=== PATIENT | male | born 1950 | race Caucasian/White ===

== ENCOUNTER 2017-10-28 17:47 | Inpatient (IN) | payer MEDICARE, OTHER, SELFPAY ==
[~2017-10-28 17:47] MED LIST: ISOVUE-370 76%-LOCM 1 ML ONE; PHENYLEPHRINE-NS 100 MCG/ML 10 ML SYRINGE ONE
[2017-10-28] MEDS ORDERED: Fentanyl 100 MCG/2 ML VIAL ONE ×4 (17:51→22:08)
[2017-10-28] MEDS ORDERED: Midazolam HCl 2 mg/2 ml Vial ONE (17:51)
[2017-10-28 18:02] LABS: Actual Bicarbonate (HCO3a) 22.1 mEq/L (22-26); Base Excess (BEa) -4.8 mEq/L (0 (+/-) 2.5); Hematocrit-ABG 46.8 % (42.0-52.0); Hemoglobin (Hb) 14.5 g/dL (14.0-18.0); O2 Tension (PaO2) 111.8 mmHg (80.0-100.0); pH, Arterial 7.28 (7.35-7.45)
[2017-10-28 18:02] LABS: #Basophils 0.1 thou/uL (0.0-0.2); #Eosinphils 0.1 thou/uL (0.0-0.7); #Lymphocytes 1.8 thou/uL (1.20-3.40); #Monocytes 0.6 thou/uL (0.11-0.59); #Neutrophils 5.2 thou/uL (1.40-6.50); %Basophils 0.9 % (0.0-1.0); %Eosinophils 1.3 % (0.0-10.0); %Lymphocytes 22.5 % (21.0-51.0); %Monocytes 8.1 % (0.0-10.0); %Neutrophils 67.3 % (42.0-75.0); Hemoglobin 15.5 g/dL (14.0-18.0); Mean Corpuscular HGB CONC 33.8 g/dL (32.0-36.0); Mean Corpuscular Hemoglobin 33.2 pg (27.0-31.0); Mean Corpuscular Volume 98.1 fl (80.0-94.0); Platelet Count 240 thou/uL (130-400); RBC Distribution Width 12.6 % (11.5-14.5); Red Blood Cell (RBC) Count 4.68 mill/uL (4.70-6.10); White Blood Cell (WBC) Count 7.8 thou/uL (4.8-10.8)
[2017-10-28 18:03] LABS: Analyzer IN Cardio ER; Calcium, Ionized 1.2 mmol/L (1.12-1.30); Puncture Site RRA
[2017-10-28 18:11] LABS: Bilirubin Negative (Negative); Blood, Urine Trace (Negative); Clarity CLEAR (Clear); Glucose, Urine (Dipstick) Negative (Negative); Leukocyte Negative (Negative); Nitrite Negative (Negative); Protein, Urine (Dipstick) Negative (Neg-Trace); Specific Gravity, Urine 1.005 (1.002-1.036); Urobilinogen 0.2 mg/dL (0.2-1.0)
[2017-10-28 18:11] LABS: PTT 26.7 SEC (22.9-36.1); Prothrombin Time 13.6 SEC (12.0-14.7)
[2017-10-28 18:14] LABS: Pathc Cast-AUWi Flag 0.14 (0-2.49)
[2017-10-28 18:15] LABS: ALT (SGPT) 50 U/L (8-55); AST (SGOT) 77 U/L (5-34); Albumin 3.8 g/dL (3.4-4.8); Alkaline Phosphatase 59 U/L (40-150); Anion Gap 12 mmol/L (10-20); BUN (Urea Nitrogen) 12 mg/dL (8.4-25.7); Bilirubin, Total 0.4 mg/dL (0.2-1.2); Calc. Creatinine Clearance 0 mL/min (70-130); Calcium 8.4 mg/dL (7.8-10.44); Carbon Dioxide 22 mmol/L (23-31); Chloride 107 mmol/L (98-107); Estimated GFR-MDRD 90; Glucose 96 mg/dL (80-115); Potassium 4.1 mmol/L (3.5-5.1); Protein, Total 6.8 g/dL (5.8-8.1); Sodium 137 mmol/L (136-145)
[2017-10-28 18:23] LABS: Bacteria/HPF None Seen HPF (None Seen); Hyaline Casts/LPF NONE SEEN LPF (0-3 Hyaline); RBC/HPF 0-3 HPF (0-3); Renal Epithelial 0-3 HPF (0-3); Squamous Epithelial None Seen HPF (0-3); Transitional Epithelial 0-3 HPF (0-3); WBC/HPF None Seen HPF (0-3)
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
[2017-10-28] MEDS ORDERED: fentaNYL Citrate/PF 2,000 MCG in Sodium Chloride 0.9% 60 ML IV SCH (19:00)
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
[2017-10-28 19:22] LABS: Acetaminophen Less than 6.0 mcg/mL (10.0-30.0); Alcohol 98 mg/dL (Less than 10); Salicylate Less than 8.0 mg/dL (15.0-30.0)
[2017-10-28 19:25] LABS: Amphetamine Not Detected (NotDetected); Barbiturates Screen Not Detected (NotDetected); Benzodiazepine Screen Not Detected (NotDetected); Cocaine Metabolite Screen Not Detected (NotDetected); Medtox Control Line Valid? VALID (VALID); Medtox Reader # READER 4; Methadone Not Detected (NotDetected); Methamphetamine Not Detected (NotDetected); Opiate Screen Not Detected (NotDetected); Oxycodone Screen Not Detected (NotDetected); Phencyclidine (PCP) Not Detected (NotDetected); THC/Cannabinoid Screen Not Detected (NotDetected); Tricyclic Screen Not Detected (NotDetected)
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
[2017-10-28] MEDS ORDERED: Neomycin-Polymyxin 1 ML AMP ONE (20:44)
--- NOTE | 2017-10-28 21:56 | RAD ---
THREE VIEWS LEFT ANKLE: 10/28/17 HISTORY: Open reduction internal fixation. Open reduction and internal fixation demonstrates plates and screws across the distal left tibial and fibular fractures. The medial malleolar fracture has been stabilized using two medial screws. There is a transosseous screw across the distal left fibula and tibia. IMPRESSION: Open reduction and internal fixation left tibial and fibular fractures. POS: [facility]
--- NOTE | 2017-10-28 22:25 | RAD ---
TWO INTRAOPERATIVE RADIOGRAPHS LEFT FOOT 10/28/17 AP and lateral views left foot is obtained on the distal aspect. Image demonstrate placement of a pin across the distal third metatarsal as well as through the proximal phalanx through both the metatars al and proximal phalangeal fractures. IMPRESSION: Open reduction internal fixation third digit fractures. POS: [facility]
[2017-10-28] MEDS ORDERED: Fentanyl BOLUS 250 ML IVPB PRN (22:42)
[2017-10-28] MEDS ORDERED: DISCONTINUE PREVIOUS NARCOTIC PAIN MEDICATIONS AND BENZODIAZEPINES FS SCH (22:42)
[2017-10-28] MEDS ORDERED: Propofol BOLUS 1,000 MG/100 ML VIAL IV PRN (22:42)
[2017-10-28] MEDS ORDERED: hydrALAZINE 20 MG/ML VIAL SLOW IVP PRN (22:55)
[2017-10-28] MEDS ORDERED: Dextrose 5% in Water 1,000 ML IV PRN (22:55)
[2017-10-28] MEDS ORDERED: Dextrose 50% Abboject 50 ML SYRINGE SLOW IVP PRN (22:55)
[2017-10-28] MEDS ORDERED: Ondansetron HCl/PF 4 MG/2 ML Vial IVP PRN (22:55)
[2017-10-28] MEDS ORDERED: Ondansetron ODT 4 MG TAB PO PRN (22:55)
[2017-10-28] MEDS ORDERED: Ventilator Sedation Protocol 1 EACH FS SCH (22:55)
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
[2017-10-28] MEDS: Propofol 1,000 MG/100 ML VIAL IV PRN (22:57)
[2017-10-28] MEDS: fentaNYL Citrate/PF 2,000 MCG in Sodium Chloride 0.9% 60 ML IV SCH (22:57)
[2017-10-28] MEDS: Sodium Chloride 0.9% 1,000 ML IV SCH (23:00)
[2017-10-28 23:20] LABS: ALV-art Gradient 243.275 (0-20); Base Excess (BEa) -4.6 mEq/L (0 (+/-) 2.5); CO2 Tension 40.9 mmHg (35.0-45.0); Calcium, Ionized 1.1 mmol/L (1.12-1.30); Hematocrit-ABG 47.4 % (42.0-52.0); O2 Tension (PaO2) 62.1 mmHg (80.0-100.0); Puncture Site RRAD; pH, Arterial 7.33 (7.35-7.45)
[2017-10-28 23:25] LABS: Hemoglobin 15.1 g/dL (14.0-18.0)
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
[2017-10-29 05:08] LABS: #Lymphocytes 0.7 thou/uL (1.20-3.40); #Monocytes 0.6 thou/uL (0.11-0.59); %Basophils 0.3 % (0.0-1.0); %Eosinophils 0.2 % (0.0-10.0); %Lymphocytes 8.4 % (21.0-51.0); %Monocytes 7.2 % (0.0-10.0); Hemoglobin 13.9 g/dL (14.0-18.0); Mean Corpuscular HGB CONC 32.9 g/dL (32.0-36.0); Mean Corpuscular Hemoglobin 31.7 pg (27.0-31.0); Mean Corpuscular Volume 96.6 fl (80.0-94.0); Mean Platelet Volume 7.4 fL (7.4-10.4); Platelet Count 186 thou/uL (130-400); RBC Distribution Width 13.1 % (11.5-14.5); Red Blood Cell (RBC) Count 4.36 mill/uL (4.70-6.10); White Blood Cell (WBC) Count 8.3 thou/uL (4.8-10.8)
[2017-10-29 05:16] LABS: Anion Gap 9 mmol/L (10-20); BUN (Urea Nitrogen) 12 mg/dL (8.4-25.7); Calc. Creatinine Clearance 127 mL/min (70-130); Calcium 7.6 mg/dL (7.8-10.44); Carbon Dioxide 25 mmol/L (23-31); Chloride 108 mmol/L (98-107); Estimated GFR-MDRD Greater than 90; Glucose 118 mg/dL (80-115); Potassium 4.2 mmol/L (3.5-5.1); Sodium 138 mmol/L (136-145)
[2017-10-29 08:22] LABS: Actual Bicarbonate (HCO3a) 23.3 mEq/L (22-26); Base Excess (BEa) 2.6 mEq/L (0 (+/-) 2.5); CO2 Tension 44.4 mmHg (35.0-45.0); Hematocrit-ABG 43.5 % (42.0-52.0); O2 Tension (PaO2) 61.6 mmHg (80.0-100.0); pH, Arterial 7.34 (7.35-7.45)
[2017-10-29 08:23] LABS: Hemoglobin (Hb) 14.1 g/dL (14.0-18.0)
[2017-10-29 08:24] LABS: Analyzer IN Cardio OR; Puncture Site LR
[2017-10-29] MEDS: Sodium Chloride 0.9% 1,000 ML IV SCH ×2 (08:24→16:22)
[2017-10-29] MEDS: Pantoprazole 40 MG VIAL IVP SCH (08:25)
--- NOTE | 2017-10-29 10:38 | RAD ---
PORTABLE CHEST: Date: 10/29/17 HISTORY: Respiratory distress. COMPARISON: Prior day's exam. FINDINGS: Heart size is borderline in size. Bilateral chest tubes are in place. The left-sided pneumothorax conner ears to have largely resolved. Endotracheal tube and NG tubes appear to be in satisfactory position. Right clavicle fracture is seen. IMPRESSION: Suggestion of almost complete resolution of left-sided pneumothorax. Otherwise stable exam. POS: [facility]
[2017-10-29 11:10] LABS: Hemoglobin 13.1 g/dL (14.0-18.0)
--- NOTE | 2017-10-29 11:54 | CT ---
PRELIMINARY REPORT/[facility]/EMERGENTY AFTER-HOURS PROCEDURE Addendum created by Walter Solis MD on 10/29/2017 4:31 AM Central Time ([place] & [place]) THIS REPORT C ONTAINS FINDINGS THAT MAY BE CRITICAL TO PATIENT CARE. The findings were verbally communicated via te lephone conference with Dr Berman at 4:31 AM CDT on 10/29/2017. The findings were acknowledged and und erstood. Initial Report created on 10/29/2017 4:17 AM Central Time ([place] & [place]) CT Head Without Intravenous Contrast CLINICAL HISTORY: 67 years old, male; Condition or disease; Other: Ich; Patient HX: F/i ich TECHNIQUE: Axial computed tomography images of the head/brain without intravenous contrast. COMPARISON: CT Brain WO Con 2017-10-28 18:34 FINDINGS: Diffuse cerebral volume loss. Chronic small vessel disease. Unchanged small left paramedian frontal lobe subarachnoid hemorrhage. Small new subarachnoid hemorrhage in the left posterior parietal region saline images 20-23. Increased extra-axial hypodensity in the left cerebral convexity with linear hyperdensities in the fr ontal region seen in image 20 measuring approximately 4 mm in greatest thickness. Unchanged 2 mm focus of hyperdensity adjacent to left frontal horn. No hydrocephalus, mass, mass effect or midline shift. No effacement of the ventricles and basal cisterns. Bolton-white matter differentiation is preserved. Atherosclerosis of the intracranial vasculature. No dense MCA sign. Orbits are unremarkable. Increasing opacification of the sphenoid sinus with air fluid levels. Mastoid air cells are clear. No acute fracture. Mild right temporal scalp soft tissue swelling. IMPRESSION: 1. New small subarachnoid hemorrhage in the left posterior parietal region and unchanged small subara chnoid hemorrhage in the left paramedian frontal lobe. 2. Increased extra-axial hypodensity in the left cerebral convexity, 4 mm in thickness with linear hy perdensities in the frontal region suggestive of additional mixed density subdural hemorrhage. 3. Unchanged 2 mm focus of hyperdensity adjacent to left frontal horn. 4. Increasing opacification of the sphenoid sinus with air fluid levels. Thank you for allowing us to participate in the care of your patient. Dictated and Authenticated by: Walter Solis MD 10/29/2017 4:17 AM Central Time ([place] & [place]) FINAL REPORT CT OF BRAIN PERFORMED WITHOUT CONTRAST ENHANCEMENT: Date: 10/29/17 HISTORY: Follow-up of intracranial hemorrhage related to a head injury. FINDINGS: There is some mild generalized ventricular and sulcal prominence. A small amount of blood adjacent to the falx in the left frontal region and a tiny amount of subarachnoid blood tracking along a sulcus in this region is felt to be stable. There has been a development of some new subarachnoid blood whic h is some minimal linear change in the left posterior frontoparietal region. Tiny focus of blood raúl cent to the tip of the left frontal horn is also stable. Slight asymmetry to the left subdural space as compared to the right, mainly low attenuation. This is slightly more prominent than it was on the previous examination, but does not have the appearance of any definite significance and does not appe ar acute. It may indicate presence of some mild cerebral edema on the right rather than a tiny chroni c left subdural. IMPRESSION: Fairly stable examination. There is some subarachnoid blood over the left frontal convexity in a para falcine location which is fairly similar to the prior examination. Some new subarachnoid blood is see n in the left posterior frontoparietal convexity and there is slight asymmetry with some low attenuat ion prominence to the extra-axial space on the left as compared to the right of uncertain significanc e. This report is in agreement with the preliminary report issued by [facility]. POS: [facility]
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
[2017-10-29 17:07] LABS: Hemoglobin 12.5 g/dL (14.0-18.0)
[2017-10-29] MEDS: Morphine 4 MG/ML VIAL SLOW IVP PRN (17:33)
[2017-10-29] MEDS: fentaNYL Citrate/PF 2,000 MCG in Sodium Chloride 0.9% 60 ML IV SCH (17:34)
--- NOTE | 2017-10-29 18:53 | CT ---
CT BRAIN NONCONTRAST: History: Intracranial hemorrhage. Comparison: Earlier in the day, 10-29-17. FINDINGS: Noncontrast enhanced CT images of the brain were obtained. There is a tiny area of medial aspect left frontal parietal subarachnoid and subdural blood to be unc hanged. This small amount of left parietotemporal subarachnoid blood has not increased and may be sli ghtly less pronounced than on the previous exam. A tiny left anterior frontal subependymal deep white matter area of hyperdensity is again seen, unchanged since the previous exam. The left subdural area of asymmetric CSF density is unchanged since the previous exam. No evidence of increasing hemorrhage is seen. Overall there may be slight decreasing amounts of subarachnoid hemorr mikael. No newly developed intracranial areas of hemorrhage or abnormalities seen. Nasogastric and endotracheal tubes again seen. IMPRESSION: See above. No newly developed areas of hemorrhage or increasing areas of shift or intraparenchymal ab normalities seen. POS: [facility]
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
[2017-10-29] MEDS ORDERED: CEFAZOLIN 1 GM VIAL SLOW IVP SCH (22:00)
[2017-10-29] MEDS: CEFAZOLIN 1 GM in Sodium Chloride 0.9% 100 ML IVPB SCH (22:10)
[2017-10-29] MEDS ORDERED: Sodium Chloride 0.9% 500 ML IV SCH (22:30)
[2017-10-30] MEDS: Sodium Chloride 0.9% 1,000 ML IV SCH ×4 (02:19→19:51)
[2017-10-30 04:42] LABS: #Lymphocytes 0.7 thou/uL (1.20-3.40); #Monocytes 0.6 thou/uL (0.11-0.59); #Neutrophils 5.7 thou/uL (1.40-6.50); %Basophils 0.4 % (0.0-1.0); %Eosinophils 0.7 % (0.0-10.0); %Lymphocytes 10.2 % (21.0-51.0); %Monocytes 8.5 % (0.0-10.0); %Neutrophils 80.2 % (42.0-75.0); Hemoglobin 11.6 g/dL (14.0-18.0); Mean Corpuscular HGB CONC 33.9 g/dL (32.0-36.0); Mean Corpuscular Hemoglobin 33.5 pg (27.0-31.0); Mean Platelet Volume 7.6 fL (7.4-10.4); Platelet Count 156 thou/uL (130-400); RBC Distribution Width 13.1 % (11.5-14.5); Red Blood Cell (RBC) Count 3.45 mill/uL (4.70-6.10); White Blood Cell (WBC) Count 7.2 thou/uL (4.8-10.8)
[2017-10-30 04:58] LABS: Anion Gap 8 mmol/L (10-20); BUN (Urea Nitrogen) 16 mg/dL (8.4-25.7); Calc. Creatinine Clearance 137 mL/min (70-130); Calcium 7.4 mg/dL (7.8-10.44); Carbon Dioxide 25 mmol/L (23-31); Chloride 109 mmol/L (98-107); Estimated GFR-MDRD Greater than 90; Glucose 119 mg/dL (80-115); Magnesium 1.6 mg/dL (1.6-2.6); Sodium 138 mmol/L (136-145)
[2017-10-30] MEDS: CEFAZOLIN 1 GM in Sodium Chloride 0.9% 100 ML IVPB SCH ×3 (06:19→21:04)
[2017-10-30 07:04] LABS: Actual Bicarbonate (HCO3a) 22.7 mEq/L (22-26); Base Excess (BEa) -2.3 mEq/L (0 (+/-) 2.5); CO2 Tension 40.2 mmHg (35.0-45.0); Calcium, Ionized 1.2 mmol/L (1.12-1.30); Hematocrit-ABG 34.5 % (42.0-52.0); Hemoglobin (Hb) 11.3 g/dL (14.0-18.0); O2 Tension (PaO2) 104.7 mmHg (80.0-100.0); Puncture Site RRA; pH, Arterial 7.37 (7.35-7.45)
[2017-10-30] MEDS: fentaNYL Citrate/PF 2,000 MCG in Sodium Chloride 0.9% 60 ML IV SCH ×2 (08:12→23:19)
[2017-10-30] MEDS: Pantoprazole 40 MG VIAL IVP SCH (08:14)
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
[2017-10-30] MEDS ORDERED: Magnesium 2 GM/NS 0.9% 100 ML 2 GM in Premix Bag 1 BAG IVPB SCH (09:00)
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
--- NOTE | 2017-10-30 09:10 | RAD ---
CHEST ONE VIEW: History: Chest tube placement. Comparison: 10-29-17 FINDINGS: Re-demonstration of endotracheal and nasogastric tubes. Left and right sided chest tubes are also dem onstrated. Stable configuration of the cardiac silhouette. Persistent opacification of the lung paren chyma. Pneumothoraxes are not appreciated. Multiple right sided rib fractures. IMPRESSION: No significant change. POS: [facility]
[2017-10-30] MEDS ORDERED: Acetaminophen 500 MG TAB PO PRN (12:54)
[2017-10-30] MEDS ORDERED: Lidocaine 1% (PF) 30 ML VIAL ONE (13:54)
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
[2017-10-30] MEDS: Morphine 4 MG/ML VIAL SLOW IVP PRN (23:19)
[2017-10-31] MEDS: Sodium Chloride 0.9% 1,000 ML IV SCH ×4 (04:12→22:49)
[2017-10-31 04:54] LABS: Anion Gap 8 mmol/L (10-20); BUN (Urea Nitrogen) 10 mg/dL (8.4-25.7); Calc. Creatinine Clearance 155 mL/min (70-130); Calcium 7.6 mg/dL (7.8-10.44); Carbon Dioxide 26 mmol/L (23-31); Chloride 110 mmol/L (98-107); Estimated GFR-MDRD Greater than 90; Glucose 93 mg/dL (80-115); Potassium 4.2 mmol/L (3.5-5.1); Sodium 140 mmol/L (136-145)
[2017-10-31] MEDS: CEFAZOLIN 1 GM in Sodium Chloride 0.9% 100 ML IVPB SCH (05:32)
[2017-10-31] MEDS: Morphine 4 MG/ML VIAL SLOW IVP PRN (06:29)
[2017-10-31 07:50] LABS: #Eosinphils 0.1 thou/uL (0.0-0.7); #Lymphocytes 0.5 thou/uL (1.20-3.40); #Monocytes 0.4 thou/uL (0.11-0.59); #Neutrophils 7.1 thou/uL (1.40-6.50); %Basophils 0.1 % (0.0-1.0); %Lymphocytes 5.6 % (21.0-51.0); %Monocytes 4.7 % (0.0-10.0); %Neutrophils 88.6 % (42.0-75.0); Hemoglobin 10.7 g/dL (14.0-18.0); Mean Corpuscular HGB CONC 32.2 g/dL (32.0-36.0); Mean Corpuscular Hemoglobin 32.4 pg (27.0-31.0); Mean Platelet Volume 7.8 fL (7.4-10.4); Platelet Count 148 thou/uL (130-400); RBC Distribution Width 12.9 % (11.5-14.5); Red Blood Cell (RBC) Count 3.32 mill/uL (4.70-6.10)
[2017-10-31 08:07] LABS: Magnesium 1.9 mg/dL (1.6-2.6)
[2017-10-31 08:09] LABS: Phosphorus 1.9 mg/dL (2.3-4.7)
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
[2017-10-31] MEDS ORDERED: Potassium Phosphate 15 MMOL in Sodium Chloride 0.9% 250 ML 250 ML IVPB SCH (08:30)
--- NOTE | 2017-10-31 09:03 | RAD ---
CHEST 1 VIEW: Date: 10/31/17 HISTORY: Chest tube. COMPARISON: Radiograph from prior day. FINDINGS: Left-sided thoracostomy tube is similar with side port within the thoracic cavity. Moderate volume le ft subcutaneous emphysema along the chest wall. Right thoracostomy tube is in place, also with side p ort within the thoracostomy cavity. Small effusions. Air space opacities are present in both lungs. N o large pneumothorax. Endotracheal tube tip at level of clavicles. Enteric tube is seen proximally, although the tip is not well delineated. IMPRESSION: Poor delineation of the enteric tube tip. Abdomen radiograph recommended. POS: [facility]
[2017-10-31] MEDS: Piperacillin/Tazobactam 3.375 GM in Sodium Chloride 0.9% 100 ML IVPB SCH ×3 (09:09→20:29)
[2017-10-31] MEDS: Pantoprazole 40 MG VIAL IVP SCH (09:10)
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
[2017-10-31] MEDS: Lorazepam 2 MG/ML VIAL SLOW IVP PRN ×2 (11:45→22:57)
[2017-10-31] MEDS: fentaNYL Citrate/PF 2,000 MCG in Sodium Chloride 0.9% 60 ML IV SCH (18:28)
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
[2017-11-01] MEDS: Piperacillin/Tazobactam 3.375 GM in Sodium Chloride 0.9% 100 ML IVPB SCH ×4 (01:17→20:10)
[2017-11-01 06:09] LABS: #Eosinphils 0.1 thou/uL (0.0-0.7); #Lymphocytes 0.5 thou/uL (1.20-3.40); #Monocytes 0.4 thou/uL (0.11-0.59); #Neutrophils 5.4 thou/uL (1.40-6.50); %Basophils 0.3 % (0.0-1.0); %Eosinophils 2.1 % (0.0-10.0); %Lymphocytes 7.7 % (21.0-51.0); %Monocytes 6.8 % (0.0-10.0); %Neutrophils 83.1 % (42.0-75.0); Hemoglobin 10.4 g/dL (14.0-18.0); Mean Corpuscular HGB CONC 34.3 g/dL (32.0-36.0); Mean Corpuscular Hemoglobin 34.2 pg (27.0-31.0); Mean Corpuscular Volume 99.9 fl (80.0-94.0); Mean Platelet Volume 7.3 fL (7.4-10.4); Platelet Count 165 thou/uL (130-400); RBC Distribution Width 12.4 % (11.5-14.5); Red Blood Cell (RBC) Count 3.04 mill/uL (4.70-6.10); White Blood Cell (WBC) Count 6.5 thou/uL (4.8-10.8)
[2017-11-01 06:21] LABS: Anion Gap 9 mmol/L (10-20); BUN (Urea Nitrogen) 11 mg/dL (8.4-25.7); Calc. Creatinine Clearance 158 mL/min (70-130); Calcium 7.8 mg/dL (7.8-10.44); Carbon Dioxide 26 mmol/L (23-31); Chloride 108 mmol/L (98-107); Estimated GFR-MDRD Greater than 90; Glucose 95 mg/dL (80-115); Potassium 4.2 mmol/L (3.5-5.1); Sodium 139 mmol/L (136-145)
[2017-11-01 07:10] LABS: Puncture Site RR
[2017-11-01 07:11] LABS: ALV-art Gradient 151.025 (0-20); Actual Bicarbonate (HCO3a) 25.4 mEq/L (22-26); Base Excess (BEa) -0.6 mEq/L (0 (+/-) 2.5); CO2 Tension 47.9 mmHg (35.0-45.0); Hemoglobin (Hb) 10.3 g/dL (14.0-18.0); O2 Tension (PaO2) 72.3 mmHg (80.0-100.0); pH, Arterial 7.34 (7.35-7.45)
[2017-11-01 07:12] LABS: Calcium, Ionized 1.2 mmol/L (1.12-1.30)
--- NOTE | 2017-11-01 07:46 | PDOC.PULCC ---
CCU Progress Note: Subj/Obj - Subjective Date: 11/01/17 Time: 07:42 Narrative: Sedated and on vent - Objective Allergies/Adverse Reactions: Allergies Allergy/AdvReac Type Severity Reaction Status Date / Time No Known Drug Allergies Allergy Unverified 10/28/17 18:54 Vital Signs and I&O: Vital Signs Temp 99.3 F 11/01/17 07:19 Pulse 96 11/01/17 07:19 Resp 14 11/01/17 07:19 BP 108/74 11/01/17 02:45 Pulse Ox 99 11/01/17 07:19 Intake & Output 10/31/17 11/01/17 11/01/17 18:59 06:59 18:59 Intake Total 2154.1 1486.3 Output Total 1850 1400 100 Balance 304.1 86.3 -100 Weight 222 lb 14.197 oz Intake: Intake, IV Amount 2154.1 1486.3 Cefazolin 1 gm In Sodium 100 Chloride 0.9% 100 ml @ 200 mls/hr IVPB Q8HR [facility] Rx#:[id number] Potassium Phosphate 15 250 mmol In Sodium Chloride 0 .9% 250 ML 250 ml @ 62.5 mls/hr IVPB NOW [facility] Rx#: [id number] Sodium Chloride 0.9% 1, 1767 1405 000 ml @ 150 mls/hr IV . Q6H40M [facility] Rx#:[id number] fentaNYL Citrate/PF 2,000 37.1 81.3 mcg In Sodium Chloride 0 .9% 60 ml @ As Directed IV INF [facility] Rx#:[id number] Output: Chest Tube Drainage 300 250 30 Left Upper Lateral Chest 60 60 10 Right Upper Lateral Chest 240 190 20 Gastric Drainage 0 50 Output, Warren 1550 1100 70 Other: Voiding Method Indwelling Catheter Indwelling Catheter Indwelling Catheter Spontaneous Breathing Test: not done (Pt going to OR) Lines (incl Aterial, CVC, PICC+Insertion date): Has a left subclavian cordis CCU Progress Note: Exam - Physical Exam Constitutional: NAD HEENT: PERRLA, sclera anicteric Neck: no nodes, no JVD Cardiovascular: RRR, no rub Focused Respiratory Location: decreased breath sounds: Right, Left Deviation from normal: did not see a leak on either chest tube today Gastrointestinal: soft, non-tender Musculoskeletal: edema present Neurological: non-focal Skin: no rash CCU Progress Note: Data - Labs Result Diagrams: 11/01/17 05:10 11/01/17 05:10 - ABG Interpretation ABG Results: ABG pH 7.34 (7.35-7.45) L 11/01/17 06:56 ABG pCO2 47.9 mmHg (35.0-45.0) H 11/01/17 06:56 ABG O2 Sat Calc/Amos 95.2 % (94.0-100.0) 11/01/17 06:56 ABG Base Excess -0.6 mEq/L (0 (+/-) 2.5) 11/01/17 06:56 Interpretation: respiratory acidosis - Radiology Interpretation Chest x-ray Status: image reviewed by me Additional comments: Large right pulmonary contusion CCU Progress Note: A/P - Time Spent with Patient Time (minutes): 35 (cc time) - Plan Plan: A: Acute respiratory failure - hypoxic, requiring vent. Probably not quite ready to wean yet. Going to OR today for repair of clavicular fracture Right pulmonary contusion - same Left PTX - seems resolved SAH Right hand weakness Multiple R rib fx with flail chest P: Not weanable yet. Will adjust vent settings To OR for clavicle repair Continue IV ABX PICC line
[2017-11-01] MEDS: Sodium Chloride 0.9% 1,000 ML IV SCH ×3 (07:50→20:10)
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
[2017-11-01] MEDS: Pantoprazole 40 MG VIAL IVP SCH (08:39)
[2017-11-01] MEDS ORDERED: Vecuronium 10 MG VIAL ONE ×2 (10:10→11:54)
[2017-11-01] MEDS ORDERED: Midazolam HCl 5 mg/5 ml Vial ONE (11:55)
[2017-11-01] MEDS: fentaNYL Citrate/PF 2,000 MCG in Sodium Chloride 0.9% 60 ML IV SCH (12:32)
[2017-11-01] MEDS: CEFAZOLIN/Water 2 GM/20 ML SYRINGE SLOW IVP SCH ×2 (13:09→21:13)
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
[2017-11-01] MEDS: Lorazepam 2 MG/ML VIAL SLOW IVP PRN (14:05)
--- NOTE | 2017-11-01 15:14 | RAD ---
TWO INTRAOPERATIVE FLUOROSCOPIC IMAGES RIGHT CLAVICLE: Date: 11-01-17 History: ORIF right clavicle. Comparison: 10-30-14 FINDINGS: There is a plate and multiple screws transfixing the previously noted comminuted and displaced, as we ll as angulated right clavicle fracture. There is improvement in alignment of the fracture fragments. Right sided thoracostomy tube is noted in place and multiple right sided rib fractures are visualize d. Also, a fracture involving the inferior body of the right scapula is partially imaged. IMPRESSION: 1. Internal fixation comminuted right clavicle fracture with improvement in alignment of fracture fra gments. 2. Multiple right sided rib fractures with right sided thoracostomy tube. 3. Fracture right scapula. POS: [facility]
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
[2017-11-02] MEDS: Lorazepam 2 MG/ML VIAL SLOW IVP PRN ×2 (00:15→11:07)
[2017-11-02] MEDS: Piperacillin/Tazobactam 3.375 GM in Sodium Chloride 0.9% 100 ML IVPB SCH ×4 (01:07→22:29)
[2017-11-02] MEDS: fentaNYL Citrate/PF 2,000 MCG in Sodium Chloride 0.9% 60 ML IV SCH ×2 (02:31→23:57)
[2017-11-02] MEDS: Sodium Chloride 0.9% 1,000 ML IV SCH ×3 (04:28→22:28)
[2017-11-02 05:46] LABS: #Eosinphils 0.2 thou/uL (0.0-0.7); #Lymphocytes 0.5 thou/uL (1.20-3.40); #Monocytes 0.5 thou/uL (0.11-0.59); #Neutrophils 4.9 thou/uL (1.40-6.50); %Basophils 0.2 % (0.0-1.0); %Eosinophils 2.6 % (0.0-10.0); %Lymphocytes 8.2 % (21.0-51.0); %Monocytes 8.1 % (0.0-10.0); %Neutrophils 80.8 % (42.0-75.0); Hemoglobin 9.5 g/dL (14.0-18.0); Mean Corpuscular HGB CONC 32.6 g/dL (32.0-36.0); Mean Corpuscular Hemoglobin 32.4 pg (27.0-31.0); Mean Corpuscular Volume 99.4 fl (80.0-94.0); Mean Platelet Volume 6.8 fL (7.4-10.4); Platelet Count 175 thou/uL (130-400); RBC Distribution Width 12.3 % (11.5-14.5); Red Blood Cell (RBC) Count 2.93 mill/uL (4.70-6.10); White Blood Cell (WBC) Count 6.1 thou/uL (4.8-10.8)
[2017-11-02 06:04] LABS: Anion Gap 9 mmol/L (10-20); BUN (Urea Nitrogen) 12 mg/dL (8.4-25.7); Calc. Creatinine Clearance 164 mL/min (70-130); Calcium 7.7 mg/dL (7.8-10.44); Carbon Dioxide 27 mmol/L (23-31); Chloride 108 mmol/L (98-107); Estimated GFR-MDRD Greater than 90; Glucose 91 mg/dL (80-115); Potassium 3.9 mmol/L (3.5-5.1); Sodium 140 mmol/L (136-145)
[2017-11-02 07:24] LABS: Actual Bicarbonate (HCO3a) 24.9 mEq/L (22-26); Base Excess (BEa) -0.5 mEq/L (0 (+/-) 2.5); CO2 Tension 44.5 mmHg (35.0-45.0); Calcium, Ionized 1.1 mmol/L (1.12-1.30); Hematocrit-ABG 29.4 % (42.0-52.0); Hemoglobin (Hb) 9.5 g/dL (14.0-18.0); O2 Tension (PaO2) 82.7 mmHg (80.0-100.0); Puncture Site RR; pH, Arterial 7.37 (7.35-7.45)
[2017-11-02 07:25] LABS: ALV-art Gradient 144.875 (0-20)
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
[2017-11-02] MEDS: Pantoprazole 40 MG VIAL IVP SCH (09:30)
--- NOTE | 2017-11-02 09:45 | RAD ---
1 VIEW CHEST: Date: 11/02/17 HISTORY: Chest tube placement. COMPARISON: 11/01/17. FINDINGS: Interval placement of an internal fixation plate along the right clavicle. Redemonstration of an endo tracheal and nasogastric tube. Nasogastric tube is not completely assessed. There is a left-sided PIC C line which has also been placed since the previous examination with the distal tip in the right atr ium. Left and right chest tubes are identified. No obvious pneumothorax. Interstitial and alveolar op acities are noted. Stable cardiac silhouette. Multiple right rib fractures are noted. IMPRESSION: 1. Interval placement of an internal fixation plate along the right clavicle. Interval placement of a left-sided PICC line. 2. Bilateral chest tubes, without evidence of pneumothorax. POS: [facility]
[2017-11-02] MEDS: Polyethylene Glycol 3350 17 GM Packet PER TUBE SCH (10:06)
[2017-11-02] MEDS: Senokot S 8.6-50 MG TAB PO SCH ×2 (10:06→22:30)
--- NOTE | 2017-11-02 13:31 | CT ---
HEAD CT WITHOUT CONTRAST: Date: 11-02-17 Comparison: 10-29-17 History: Decreased mental status, re-evaluate intracranial hemorrhage. Technique: Serial axial CT imaging is obtained at 5 mm intervals from vertex through skull base witho ut contrast. FINDINGS: The imaged paranasal sinuses and mastoid air cells demonstrate mild mucosal thickening of the posteri or ethmoid air cells bilaterally as well as bilateral sphenoid sinuses, left greater than right. Ther e is an obliquely oriented fracture involving the temporal bone on the right extending into the regio n of the mastoid air cells with opacification of the tympanic cavity and the majority of the mastoid air cells on the right. There is small volume subarachnoid blood in the posterior left frontoparietal region, which appears s imilar to slightly decreased when compared to the prior examination. There is also small volume subdu ral hemorrhage on image 24 just to the left of the falx measuring 3 mm, unchanged. No new intracrania l hemorrhage. No midline shift or mass effect. IMPRESSION: 1. Small volume intracranial hemorrhage as detailed above. No new hemorrhage, midline shift, or mass effect. 2. Nondisplaced stable right temporal bone fracture with associated opacification of the mastoid air cells and tympanic cavity. Fabian RICH Spoke with Vipul Coles at approximately 1145 a.m. 11-02-17. POS: [facility]
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
[2017-11-03] MEDS: Piperacillin/Tazobactam 3.375 GM in Sodium Chloride 0.9% 100 ML IVPB SCH ×4 (03:37→20:20)
[2017-11-03] MEDS: Sodium Chloride 0.9% 1,000 ML IV SCH ×3 (03:39→10:00)
[2017-11-03 04:47] LABS: #Eosinphils 0.2 thou/uL (0.0-0.7); #Lymphocytes 0.6 thou/uL (1.20-3.40); #Monocytes 0.5 thou/uL (0.11-0.59); #Neutrophils 4.5 thou/uL (1.40-6.50); %Basophils 0.3 % (0.0-1.0); %Eosinophils 3.6 % (0.0-10.0); %Lymphocytes 9.6 % (21.0-51.0); %Monocytes 8.2 % (0.0-10.0); %Neutrophils 78.3 % (42.0-75.0); Hemoglobin 9.8 g/dL (14.0-18.0); Mean Corpuscular HGB CONC 33.1 g/dL (32.0-36.0); Mean Corpuscular Hemoglobin 32.7 pg (27.0-31.0); Mean Corpuscular Volume 98.8 fl (80.0-94.0); Mean Platelet Volume 7.4 fL (7.4-10.4); Platelet Count 194 thou/uL (130-400); RBC Distribution Width 12.3 % (11.5-14.5); Red Blood Cell (RBC) Count 2.98 mill/uL (4.70-6.10); White Blood Cell (WBC) Count 5.8 thou/uL (4.8-10.8)
[2017-11-03 04:58] LABS: Anion Gap 7 mmol/L (10-20); BUN (Urea Nitrogen) 12 mg/dL (8.4-25.7); Calc. Creatinine Clearance 184 mL/min (70-130); Carbon Dioxide 28 mmol/L (23-31); Chloride 106 mmol/L (98-107); Estimated GFR-MDRD Greater than 90; Glucose 115 mg/dL (80-115); Potassium 3.5 mmol/L (3.5-5.1); Sodium 137 mmol/L (136-145)
[2017-11-03 07:27] LABS: Actual Bicarbonate (HCO3a) 27.4 mEq/L (22-26); Base Excess (BEa) 2.4 mEq/L (0 (+/-) 2.5); CO2 Tension 44.3 mmHg (35.0-45.0); Hematocrit-ABG 26.5 % (42.0-52.0); Hemoglobin (Hb) 8.6 g/dL (14.0-18.0); O2 Tension (PaO2) 72.5 mmHg (80.0-100.0); pH, Arterial 7.41 (7.35-7.45)
[2017-11-03 07:28] LABS: Calcium, Ionized 1.1 mmol/L (1.12-1.30); Puncture Site RRA
[2017-11-03 07:29] LABS: ALV-art Gradient 86.025 (0-20)
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
[2017-11-03] MEDS ORDERED: Bisacodyl 10 MG SUPP PR PRN (08:18)
[2017-11-03] MEDS ORDERED: Pancrelipase DR 12000 1 CAP FS PRN (08:21)
[2017-11-03] MEDS ORDERED: Sodium Bicarbonate Tab 325 MG TAB PER TUBE PRN (08:21)
--- NOTE | 2017-11-03 08:37 | RAD ---
CHEST ONE VIEW: History: Chest tube. Comparison: 11-02-17 FINDINGS: Portable semi upright chest re-demonstrates the endotracheal tube, nasogastric tube, left and right s ided chest tubes. Stable post-surgical change involving the right clavicle. Stable opacification of t he lung parenchyma. Focal pneumonia or atelectasis in the right lower lobe is noted. There is no pneu mothorax. Multiple right rib fractures are again demonstrated. IMPRESSION: 1. Worsening of opacification of the right lower lobe. 2. Stable left-sided PICC line. POS: [facility]
[2017-11-03] MEDS: Polyethylene Glycol 3350 17 GM Packet PER TUBE SCH (09:38)
[2017-11-03] MEDS: Senokot S 8.6-50 MG TAB PO SCH ×2 (09:39→20:20)
[2017-11-03] MEDS: Pantoprazole 40 MG VIAL IVP SCH (09:39)
--- NOTE | 2017-11-03 14:56 | PRG ---
DATE OF SERVICE: 11/03/2017 SUBJECTIVE: Mr. Ward is doing well today. He is on the ventilator. Dr. Arambula has been unable to wean him. He has bilateral chest tubes, there is no air leak. The patient is awake and responsive appropriately to questions and commands. White count 5, hemoglobin 9.8. Basic metabolic profile nor mal. Renal function normal. Urine output excellent 3555 in last 24 hours. The patient's IV fluids have been decreased to TKO rate. He is tolerating his tube feedings. We will allow him to diurese. OBJECTIVE: LUNGS: Clear to auscultation. Lung sounds better with less rhonchi. CARDIAC: Regular rate and rhythm. ABDOMEN: Soft, nontender. EXTREMITIES: Unremarkable. ASSESSMENT AND PLAN: 1. Respiratory failure, multiple rib fractures, flail chest. Continue ventilatory weaning efforts. Hopefully, he will not need a tracheostomy. 2. Neuropraxia, right arm. 3. Right clavicular fracture. 4. Status post open reduction and internal fixation, left ankle. Continue tube feedings. He has a PICC line. Hopefully, he will not need a tracheostomy.
[2017-11-03] MEDS: fentaNYL Citrate/PF 2,000 MCG in Sodium Chloride 0.9% 60 ML IV SCH (18:33)
[2017-11-04] MEDS: Piperacillin/Tazobactam 3.375 GM in Sodium Chloride 0.9% 100 ML IVPB SCH ×4 (02:34→20:02)
[2017-11-04 05:07] LABS: #Eosinphils 0.2 thou/uL (0.0-0.7); #Lymphocytes 0.4 thou/uL (1.20-3.40); #Monocytes 0.5 thou/uL (0.11-0.59); #Neutrophils 5.7 thou/uL (1.40-6.50); %Basophils 0.3 % (0.0-1.0); %Eosinophils 2.8 % (0.0-10.0); %Lymphocytes 6.5 % (21.0-51.0); %Monocytes 6.7 % (0.0-10.0); %Neutrophils 83.8 % (42.0-75.0); Mean Corpuscular HGB CONC 34.4 g/dL (32.0-36.0); Mean Corpuscular Hemoglobin 33.8 pg (27.0-31.0); Mean Corpuscular Volume 98.5 fl (80.0-94.0); Mean Platelet Volume 7.3 fL (7.4-10.4); Platelet Count 224 thou/uL (130-400); RBC Distribution Width 12.2 % (11.5-14.5); Red Blood Cell (RBC) Count 2.97 mill/uL (4.70-6.10); White Blood Cell (WBC) Count 6.8 thou/uL (4.8-10.8)
[2017-11-04 05:42] LABS: Anion Gap 6 mmol/L (10-20); BUN (Urea Nitrogen) 16 mg/dL (8.4-25.7); Calc. Creatinine Clearance 172 mL/min (70-130); Calcium 8.2 mg/dL (7.8-10.44); Carbon Dioxide 32 mmol/L (23-31); Chloride 105 mmol/L (98-107); Estimated GFR-MDRD Greater than 90; Glucose 138 mg/dL (80-115); Potassium 3.4 mmol/L (3.5-5.1); Sodium 140 mmol/L (136-145)
[2017-11-04 06:38] LABS: Actual Bicarbonate (HCO3a) 30.3 mEq/L (22-26); Base Excess (BEa) 4.4 mEq/L (0 (+/-) 2.5); CO2 Tension 51.9 mmHg (35.0-45.0); Calcium, Ionized 1.1 mmol/L (1.12-1.30); Hematocrit-ABG 31.7 % (42.0-52.0); Hemoglobin (Hb) 10.2 g/dL (14.0-18.0); O2 Tension (PaO2) 68.3 mmHg (80.0-100.0); Puncture Site RR; pH, Arterial 7.38 (7.35-7.45)
[2017-11-04 06:39] LABS: ALV-art Gradient 79.225 (0-20)
[2017-11-04] MEDS: Pantoprazole 40 MG VIAL IVP SCH (09:39)
[2017-11-04] MEDS: Senokot S 8.6-50 MG TAB PO SCH ×2 (09:40→20:02)
[2017-11-04] MEDS: Polyethylene Glycol 3350 17 GM Packet PER TUBE SCH (09:40)
[2017-11-04] MEDS: Sodium Chloride 0.9% 1,000 ML IV SCH (09:41)
--- NOTE | 2017-11-04 10:20 | RAD ---
ONE VIEW CHEST: COMPARISON: 11/02/17, 11/03/17. FINDINGS: Stable lines and tubes. Stable aeration of the lung. Patchy opacities do remain. IMPRESSION: No significant change. POS: [facility]
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
[2017-11-04] MEDS: fentaNYL Citrate/PF 2,000 MCG in Sodium Chloride 0.9% 60 ML IV SCH (13:16)
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
[2017-11-05] MEDS: Piperacillin/Tazobactam 3.375 GM in Sodium Chloride 0.9% 100 ML IVPB SCH ×4 (01:03→20:39)
[2017-11-05] MEDS: fentaNYL Citrate/PF 2,000 MCG in Sodium Chloride 0.9% 60 ML IV SCH ×2 (04:12→21:21)
[2017-11-05 06:05] LABS: #Eosinphils 0.2 thou/uL (0.0-0.7); #Lymphocytes 0.8 thou/uL (1.20-3.40); #Monocytes 0.7 thou/uL (0.11-0.59); #Neutrophils 5.2 thou/uL (1.40-6.50); %Basophils 0.2 % (0.0-1.0); %Eosinophils 3.4 % (0.0-10.0); %Monocytes 10.3 % (0.0-10.0); %Neutrophils 75.1 % (42.0-75.0); Hemoglobin 10.3 g/dL (14.0-18.0); Mean Corpuscular HGB CONC 33.1 g/dL (32.0-36.0); Mean Corpuscular Hemoglobin 32.2 pg (27.0-31.0); Mean Corpuscular Volume 97.2 fl (80.0-94.0); Platelet Count 280 thou/uL (130-400); RBC Distribution Width 12.4 % (11.5-14.5); Red Blood Cell (RBC) Count 3.22 mill/uL (4.70-6.10)
[2017-11-05 06:15] LABS: Anion Gap 8 mmol/L (10-20); BUN (Urea Nitrogen) 17 mg/dL (8.4-25.7); Calc. Creatinine Clearance 0 mL/min (70-130); Calcium 8.5 mg/dL (7.8-10.44); Carbon Dioxide 28 mmol/L (23-31); Chloride 106 mmol/L (98-107); Estimated GFR-MDRD Greater than 90; Glucose 125 mg/dL (80-115); Magnesium 1.8 mg/dL (1.6-2.6); Phosphorus 2.6 mg/dL (2.3-4.7); Potassium 3.4 mmol/L (3.5-5.1); Sodium 139 mmol/L (136-145)
[2017-11-05] MEDS: Senokot S 8.6-50 MG TAB PO SCH ×2 (08:38→20:39)
[2017-11-05] MEDS: Pantoprazole 40 MG VIAL IVP SCH (08:38)
[2017-11-05] MEDS: Polyethylene Glycol 3350 17 GM Packet PER TUBE SCH (08:39)
[2017-11-05] MEDS: Sodium Chloride 0.9% 1,000 ML IV SCH (08:40)
--- NOTE | 2017-11-05 09:25 | RAD ---
CHEST 1 VIEW: HISTORY: Chest tube. COMPARISON: 11/07/15. FINDINGS: Redemonstration of endotracheal tube, nasogastric tube, left-sided PICC line, and bilateral chest tub es. There has been improved aeration of the left lung. Residual patchy interstitial opacities in th e left and right lung do remain. More focal infiltrate in the right lower lobe is noted. Right rib fractures are identified. IMPRESSION: Improved aeration. POS: [facility]
[2017-11-05] MEDS: Propofol 1,000 MG/100 ML VIAL IV PRN ×2 (09:42→18:15)
[2017-11-05] MEDS ORDERED: Magnesium Sulfate 2 GM in Sodium Chloride 0.9% 100 ML IVPB SCH (10:45)
[2017-11-05] MEDS ORDERED: Magnesium 2 GM/NS 0.9% 100 ML 2 GM in Premix Bag 1 BAG IVPB SCH (10:45)
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
[2017-11-06] MEDS: Piperacillin/Tazobactam 3.375 GM in Sodium Chloride 0.9% 100 ML IVPB SCH ×4 (02:40→20:50)
[2017-11-06] MEDS: Propofol 1,000 MG/100 ML VIAL IV PRN ×4 (02:40→20:50)
[2017-11-06 05:02] LABS: Anion Gap 8 mmol/L (10-20); BUN (Urea Nitrogen) 17 mg/dL (8.4-25.7); Calc. Creatinine Clearance 0 mL/min (70-130); Calcium 8.4 mg/dL (7.8-10.44); Carbon Dioxide 27 mmol/L (23-31); Chloride 109 mmol/L (98-107); Estimated GFR-MDRD Greater than 90; Glucose 130 mg/dL (80-115); Potassium 3.7 mmol/L (3.5-5.1); Sodium 140 mmol/L (136-145)
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
[2017-11-06] MEDS: Senokot S 8.6-50 MG TAB PO SCH ×2 (09:40→20:50)
[2017-11-06] MEDS: Polyethylene Glycol 3350 17 GM Packet PER TUBE SCH (09:41)
[2017-11-06] MEDS: Pantoprazole 40 MG VIAL IVP SCH (09:41)
[2017-11-06] MEDS: Sodium Chloride 0.9% 1,000 ML IV SCH (09:43)
--- NOTE | 2017-11-06 10:05 | RAD ---
ONE VIEW CHEST: History: Chest tube. Comparison: 11-05-17 FINDINGS: Redemonstration of endotracheal tube, nasogastric tube, left sided PICC line and bilateral chest tube s. Stable post-traumatic changes and parenchymal opacification. No pneumothorax. IMPRESSION: No significant change. POS: [facility]
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
--- NOTE | 2017-11-06 17:12 | EKG ---
Test Reason : ROUTINE Blood Pressure : / mmHG Vent. Rate : 090 BPM Atrial Rate : 090 BPM P-R Int : 126 ms QRS Dur : 072 ms QT Int : 356 ms P-R-T Axes : 065 043 035 degrees QTc Int : 435 ms Normal sinus rhythm Low voltage QRS Borderline ECG When compared with ECG of 28-OCT-2017 19:08, Nonspecific T wave abnormality now evident in Inferior leads Confirmed by KYREE DYE, . SJuan Pablo ([id number]) on 11/06/2017 5:11:58 PM Referred By: SHAHEED Confirmed By:DR. Ulises ADORNO MD
[2017-11-06] MEDS: fentaNYL Citrate/PF 2,000 MCG in Sodium Chloride 0.9% 60 ML IV SCH (20:49)
[2017-11-07] MEDS: Propofol 1,000 MG/100 ML VIAL IV PRN ×3 (02:40→22:11)
[2017-11-07] MEDS: Piperacillin/Tazobactam 3.375 GM in Sodium Chloride 0.9% 100 ML IVPB SCH (02:40)
[2017-11-07 05:22] LABS: Anion Gap 10 mmol/L (10-20); BUN (Urea Nitrogen) 16 mg/dL (8.4-25.7); Calc. Creatinine Clearance 0 mL/min (70-130); Calcium 8.9 mg/dL (7.8-10.44); Carbon Dioxide 26 mmol/L (23-31); Chloride 108 mmol/L (98-107); Estimated GFR-MDRD Greater than 90; Glucose 122 mg/dL (80-115); Potassium 4.1 mmol/L (3.5-5.1); Sodium 140 mmol/L (136-145)
[2017-11-07] MEDS ORDERED: Rib Fracture Protocol IV SCH (08:15)
[2017-11-07] MEDS: Polyethylene Glycol 3350 17 GM Packet PER TUBE SCH (08:20)
[2017-11-07] MEDS: Pantoprazole 40 MG VIAL IVP SCH (08:20)
[2017-11-07] MEDS: Senokot S 8.6-50 MG TAB PO SCH ×2 (08:20→21:02)
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
--- NOTE | 2017-11-07 08:41 | RAD ---
PORTABLE CHEST: Date: 11/07/17 INDICATION: Assess chest tube. CCU follow-up. COMPARISON: 11/06/17. FINDINGS: Right-sided chest tube is unchanged. Parenchymal opacity in the right lower lung may represent areas of atelectasis or infiltrate. I cannot exclude a small peripheral right pneumothorax. Multiple right- sided displaced rib fractures again noted. Plate and screws transfixing the right clavicle with skin serafin over the right clavicle again noted. ET tube and NG tube are unchanged. Left lung remains carrol ar. Central line is unchanged. IMPRESSION: No evidence of significant change from yesterday. POS: [facility]
[2017-11-07] MEDS: Acetaminophen 650 MG/20.3 ML UDCUP PER TUBE SCH ×2 (11:02→18:02)
[2017-11-07] MEDS: Sodium Chloride 0.9% 1,000 ML IV SCH (11:07)
[2017-11-07] MEDS: Ketorolac Tromethamine 30 MG/ML VIAL IVP SCH ×2 (11:08→18:02)
[2017-11-07] MEDS: Dexamethasone 4 mg/ml Vial SLOW IVP SCH ×2 (11:09→18:04)
--- NOTE | 2017-11-07 14:14 | EKG ---
Test Reason : Blood Pressure : / mmHG Vent. Rate : 095 BPM Atrial Rate : 095 BPM P-R Int : 148 ms QRS Dur : 070 ms QT Int : 366 ms P-R-T Axes : 061 058 056 degrees QTc Int : 459 ms Normal sinus rhythm with sinus arrhythmia Low voltage QRS Borderline ECG Reconfirmed by ARCHANA RIBERA ([id number]), market editor RAMSES DAILEY ([id number]) on 11/07/2017 2:13:45 PM Referred By: Confirmed By:ARCHANA RIBERA
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
[2017-11-08] MEDS: Acetaminophen 650 MG/20.3 ML UDCUP PER TUBE SCH ×2 (00:32→05:44)
[2017-11-08] MEDS: Ketorolac Tromethamine 30 MG/ML VIAL IVP SCH ×2 (00:33→05:44)
[2017-11-08] MEDS: Dexamethasone 4 mg/ml Vial SLOW IVP SCH (00:33)
[2017-11-08] MEDS ORDERED: fentaNYL Citrate/PF 2,000 MCG in Sodium Chloride 0.9% 60 ML IV SCH (04:30)
[2017-11-08 04:36] LABS: #Basophils 0.1 thou/uL (0.0-0.2); #Lymphocytes 0.3 thou/uL (1.20-3.40); #Monocytes 0.1 thou/uL (0.11-0.59); #Neutrophils 6.2 thou/uL (1.40-6.50); %Basophils 1.6 % (0.0-1.0); %Eosinophils 0.2 % (0.0-10.0); %Monocytes 1.9 % (0.0-10.0); %Neutrophils 92.3 % (42.0-75.0); Hemoglobin 11.4 g/dL (14.0-18.0); Mean Corpuscular HGB CONC 33.8 g/dL (32.0-36.0); Mean Corpuscular Hemoglobin 32.7 pg (27.0-31.0); Mean Corpuscular Volume 96.5 fl (80.0-94.0); Mean Platelet Volume 7.3 fL (7.4-10.4); Platelet Count 451 thou/uL (130-400); RBC Distribution Width 12.7 % (11.5-14.5); Red Blood Cell (RBC) Count 3.49 mill/uL (4.70-6.10); White Blood Cell (WBC) Count 6.7 thou/uL (4.8-10.8)
[2017-11-08 04:45] LABS: Anion Gap 12 mmol/L (10-20); BUN (Urea Nitrogen) 26 mg/dL (8.4-25.7); Calc. Creatinine Clearance 0 mL/min (70-130); Calcium 9.2 mg/dL (7.8-10.44); Carbon Dioxide 25 mmol/L (23-31); Chloride 106 mmol/L (98-107); Estimated GFR-MDRD Greater than 90; Glucose 168 mg/dL (80-115); Magnesium 2.4 mg/dL (1.6-2.6); Phosphorus 3.9 mg/dL (2.3-4.7); Potassium 4.5 mmol/L (3.5-5.1); Sodium 138 mmol/L (136-145)
[2017-11-08] MEDS: Senokot S 8.6-50 MG TAB PO SCH ×2 (09:06→20:27)
[2017-11-08] MEDS: Polyethylene Glycol 3350 17 GM Packet PER TUBE SCH (09:06)
[2017-11-08] MEDS: Pantoprazole 40 MG VIAL IVP SCH (09:06)
[2017-11-08] MEDS: Sodium Chloride 0.9% 1,000 ML IV SCH ×2 (09:08→18:35)
[2017-11-08] MEDS ORDERED: Morphine 4 MG/ML VIAL SLOW IVP PRN (09:30)
[2017-11-08] MEDS ORDERED: Gabapentin 300 MG CAP PO SCH ×2 (09:30→10:00)
[2017-11-08] MEDS ORDERED: Rib Fracture Protocol PO SCH (09:45)
[2017-11-08] MEDS ORDERED: Cyclobenzaprine 10 MG TAB PO PRN (09:45)
--- NOTE | 2017-11-08 09:57 | RAD ---
CHEST 1 VIEW: HISTORY: Chest tube removal. COMPARISON: Chest radiograph prior day. FINDINGS: Right thoracostomy tube has been removed. No significant apical pneumothorax is appreciated. Volume loss in the right lung with significant atelectasis. Multiple displaced right-sided rib fractures. Endotracheal tube tip is above the vicky. Enteric tube tip in gastric body. Lungs are somewhat hypoinflated. Multiple stable node of the right clavicle. IMPRESSION: Interval removal of thoracostomy tube without significant pneumothorax. POS: [facility]
[2017-11-08] MEDS: Acetaminophen 500 MG TAB PO SCH ×2 (11:40→18:30)
--- NOTE | 2017-11-08 11:58 | RAD ---
ABDOMEN ONE VIEW: HISTORY: Dobhoff feeding tube placement. COMPARISON: None. FINDINGS: One view abdomen demonstrates a Dobhoff feeding tube in the gastric cardia. An incidental IVC filter is noted. IMPRESSION: Dobhoff feeding tube, as above. POS: [facility]
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
[2017-11-08] MEDS: traMADol HCl 50 MG TAB PO SCH ×2 (13:15→19:07)
[2017-11-08] MEDS: Ibuprofen 800 MG TAB PO SCH ×2 (14:30→20:27)
[2017-11-08] MEDS: Gabapentin 300 MG CAP PO SCH ×2 (15:00→20:27)
[2017-11-08] MEDS: Acetaminophen 1,000 MG in Premix Bag 1 BAG IVPB SCH (19:07)
[2017-11-08] MEDS: Enoxaparin Sodium 40 MG/0.4 ML SYRINGE SC SCH (20:44)
[2017-11-08] MEDS ORDERED: Gabapentin 100 MG CAP PO SCH (21:00)
[2017-11-09] MEDS: traMADol HCl 50 MG TAB PO SCH ×4 (00:37→18:10)
[2017-11-09] MEDS: Acetaminophen 500 MG TAB PO SCH ×4 (00:37→18:10)
[2017-11-09] MEDS: Ketorolac Tromethamine 30 MG/ML VIAL IVP SCH ×2 (00:50→06:10)
[2017-11-09] MEDS: Acetaminophen 1,000 MG in Premix Bag 1 BAG IVPB SCH ×2 (00:50→06:10)
[2017-11-09 05:08] LABS: Anion Gap 7 mmol/L (10-20); BUN (Urea Nitrogen) 29 mg/dL (8.4-25.7); Calc. Creatinine Clearance 0 mL/min (70-130); Calcium 8.5 mg/dL (7.8-10.44); Carbon Dioxide 25 mmol/L (23-31); Chloride 113 mmol/L (98-107); Estimated GFR-MDRD Greater than 90; Glucose 92 mg/dL (80-115); Potassium 3.4 mmol/L (3.5-5.1); Sodium 142 mmol/L (136-145)
[2017-11-09] MEDS: Ibuprofen 800 MG TAB PO SCH ×3 (06:04→21:07)
[2017-11-09] MEDS: Sodium Chloride 0.9% 1,000 ML IV SCH (06:14)
[2017-11-09] MEDS: Senokot S 8.6-50 MG TAB PO SCH ×2 (08:50→21:07)
[2017-11-09] MEDS: Gabapentin 300 MG CAP PO SCH ×3 (08:50→21:07)
[2017-11-09] MEDS: Polyethylene Glycol 3350 17 GM Packet PER TUBE SCH (08:51)
[2017-11-09] MEDS ORDERED: Potassium Chloride 40 MEQ in Sodium Chloride 0.9% 250 ML 250 ML IVPB SCH (09:15)
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
[2017-11-09] MEDS: Nicotine 14 MG PATCH TD SCH (20:59)
[2017-11-09] MEDS: Enoxaparin Sodium 40 MG/0.4 ML SYRINGE SC SCH (21:06)
[2017-11-10] MEDS: traMADol HCl 50 MG TAB PO SCH ×5 (00:11→23:49)
[2017-11-10] MEDS: Acetaminophen 500 MG TAB PO SCH ×5 (00:11→23:49)
[2017-11-10] MEDS: Ibuprofen 800 MG TAB PO SCH ×3 (06:40→21:00)
[2017-11-10] MEDS: Gabapentin 300 MG CAP PO SCH ×3 (09:16→20:58)
[2017-11-10] MEDS: Senokot S 8.6-50 MG TAB PO SCH ×2 (09:16→20:58)
[2017-11-10] MEDS: Polyethylene Glycol 3350 17 GM Packet PER TUBE SCH (09:16)
[2017-11-10] MEDS ORDERED: Tamsulosin HCl 0.4 MG CAP PO SCH (11:30)
[2017-11-10 13:43] VITALS: BMI 32.1
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
[2017-11-10] MEDS ORDERED: Metoprolol Tartrate 5 MG/5 ML VIAL ONE (15:48)
[2017-11-10] MEDS: Enoxaparin Sodium 40 MG/0.4 ML SYRINGE SC SCH (20:58)
[2017-11-10] MEDS: Nicotine 14 MG PATCH TD SCH (20:58)
[2017-11-11 04:36] LABS: Anion Gap 13 mmol/L (10-20); BUN (Urea Nitrogen) 22 mg/dL (8.4-25.7); Calc. Creatinine Clearance 154 mL/min (70-130); Calcium 9.1 mg/dL (7.8-10.44); Carbon Dioxide 20 mmol/L (23-31); Chloride 108 mmol/L (98-107); Estimated GFR-MDRD Greater than 90; Glucose 91 mg/dL (80-115); Magnesium 2.2 mg/dL (1.6-2.6); Phosphorus 3.3 mg/dL (2.3-4.7); Potassium 3.9 mmol/L (3.5-5.1); Sodium 137 mmol/L (136-145)
[2017-11-11] MEDS: traMADol HCl 50 MG TAB PO SCH ×3 (06:27→18:20)
[2017-11-11] MEDS: Acetaminophen 500 MG TAB PO SCH ×3 (06:27→18:20)
[2017-11-11] MEDS: Ibuprofen 800 MG TAB PO SCH ×3 (06:27→21:44)
[2017-11-11] MEDS: Tamsulosin HCl 0.4 MG CAP PO SCH (08:50)
[2017-11-11] MEDS: Senokot S 8.6-50 MG TAB PO SCH ×2 (08:50→20:50)
[2017-11-11] MEDS: Gabapentin 300 MG CAP PO SCH ×3 (08:50→21:43)
[2017-11-11] MEDS: Polyethylene Glycol 3350 17 GM Packet PER TUBE SCH (08:50)
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
[2017-11-11] MEDS: Enoxaparin Sodium 40 MG/0.4 ML SYRINGE SC SCH (21:44)
[2017-11-11] MEDS: Nicotine 14 MG PATCH TD SCH (21:44)
[2017-11-12] MEDS: Acetaminophen 500 MG TAB PO SCH ×4 (00:42→18:26)
[2017-11-12] MEDS: traMADol HCl 50 MG TAB PO SCH ×4 (00:42→18:26)
[2017-11-12] MEDS: Ibuprofen 800 MG TAB PO SCH ×3 (06:30→21:21)
[2017-11-12] MEDS: Gabapentin 300 MG CAP PO SCH ×3 (09:41→19:36)
[2017-11-12] MEDS: Tamsulosin HCl 0.4 MG CAP PO SCH (09:41)
[2017-11-12] MEDS: Senokot S 8.6-50 MG TAB PO SCH ×2 (09:44→19:36)
[2017-11-12] MEDS: Polyethylene Glycol 3350 17 GM Packet PER TUBE SCH (09:44)
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
[2017-11-12] MEDS: Nicotine 14 MG PATCH TD SCH (19:36)
[2017-11-12] MEDS: Enoxaparin Sodium 40 MG/0.4 ML SYRINGE SC SCH (19:36)
[2017-11-13] MEDS: Acetaminophen 500 MG TAB PO SCH ×4 (01:13→18:04)
[2017-11-13] MEDS: traMADol HCl 50 MG TAB PO SCH ×2 (01:13→04:16)
[2017-11-13] MEDS: Ibuprofen 800 MG TAB PO SCH ×2 (06:32→13:43)
[2017-11-13] MEDS ORDERED: traMADol HCl 50 MG TAB PO PRN ×2 (07:41)
[2017-11-13] MEDS: Gabapentin 300 MG CAP PO SCH ×2 (09:24→13:43)
[2017-11-13] MEDS: Tamsulosin HCl 0.4 MG CAP PO SCH (09:24)
[2017-11-13] MEDS: Senokot S 8.6-50 MG TAB PO SCH (09:25)
[2017-11-13] MEDS: Polyethylene Glycol 3350 17 GM Packet PER TUBE SCH (09:35)
[2017-11-13 17:26] VITALS: BP 108/73; TEMP 98
== END 2017-11-13 19:00 | DRG 957 ==
LOC: EDBD 17:47 → ERS 17:47 → CCU 20:20 → SURG A 11-09 14:29
PROVIDERS: ADMIT Surgery; ATTEND Surgery
PROC: 0QSK04Z Reposition Left Fibula with Internal Fixation Device, Open Approach (ICD-10-PCS; principal; 2017-10-28)
PROC: 0QSH04Z Reposition Left Tibia with Internal Fixation Device, Open Approach (ICD-10-PCS; 2017-10-28)
PROC: 0QSR04Z Reposition Left Toe Phalanx with Internal Fixation Device, Open Approach (ICD-10-PCS; 2017-10-28)
PROC: 0QSP04Z Reposition Left Metatarsal with Internal Fixation Device, Open Approach (ICD-10-PCS; 2017-10-28)
PROC: 0QSPXZZ Reposition Left Metatarsal, External Approach (ICD-10-PCS; 2017-10-28)
PROC: 0QSRXZZ Reposition Left Toe Phalanx, External Approach (ICD-10-PCS; 2017-10-28)
PROC: 0QSRXZZ Reposition Left Toe Phalanx, External Approach (ICD-10-PCS; 2017-10-28)
PROC: 0QSRXZZ Reposition Left Toe Phalanx, External Approach (ICD-10-PCS; 2017-10-28)
PROC: 0W9B00Z Drainage of Left Pleural Cavity with Drainage Device, Open Approach (ICD-10-PCS; 2017-10-28)
PROC: 0W9900Z Drainage of Right Pleural Cavity with Drainage Device, Open Approach (ICD-10-PCS; 2017-10-28)
PROC: 02H633Z Insertion of Infusion Device into Right Atrium, Percutaneous Approach (ICD-10-PCS; 2017-10-28)
PROC: 5A1955Z Respiratory Ventilation, Greater than 96 Consecutive Hours (ICD-10-PCS; 2017-10-28)
PROC: 06H03DZ Insertion of Intraluminal Device into Inferior Vena Cava, Percutaneous Approach (ICD-10-PCS; 2017-10-30)
PROC: 0PS904Z Reposition Right Clavicle with Internal Fixation Device, Open Approach (ICD-10-PCS; 2017-11-01)
PROC: 02HV33Z Insertion of Infusion Device into Superior Vena Cava, Percutaneous Approach (ICD-10-PCS; 2017-11-01)
DX: S82.832A Other fracture of upper and lower end of left fibula, initial encounter for closed fracture (principal); J96.01 Acute respiratory failure with hypoxia; S22.5XXA Flail chest, initial encounter for closed fracture; S27.2XXA Traumatic hemopneumothorax, initial encounter; S06.6X9A Traumatic subarachnoid hemorrhage with loss of consciousness of unspecified duration, initial encounter; S92.332B Displaced fracture of third metatarsal bone, left foot, initial encounter for open fracture; D62 Acute posthemorrhagic anemia; S27.321A Contusion of lung, unilateral, initial encounter; S92.322B Displaced fracture of second metatarsal bone, left foot, initial encounter for open fracture; S06.5X9A Traumatic subdural hemorrhage with loss of consciousness of unspecified duration, initial encounter; S42.001A Fracture of unspecified part of right clavicle, initial encounter for closed fracture; S42.101A Fracture of unspecified part of scapula, right shoulder, initial encounter for closed fracture; S82.52XA Displaced fracture of medial malleolus of left tibia, initial encounter for closed fracture; S92.412A Displaced fracture of proximal phalanx of left great toe, initial encounter for closed fracture; S92.512A Displaced fracture of proximal phalanx of left lesser toe(s), initial encounter for closed fracture; G89.11 Acute pain due to trauma; E87.6 Hypokalemia; V29.9XXA Motorcycle rider (driver) (passenger) injured in unspecified traffic accident, initial encounter
CPT/HCPCS: 32551; 36415; 36416; 36430; 36556; 36569; 37191; 51702; 70450; 71045; 71260; 72125; 72170; 74018; 74177; 76001; 76942; 80048; 80053; 80306; 80307; 81003; 81015; 82150; 82805; 83735; 84100; 85025; 85610; 85730; 86850; 86900; 86901; 90471; 93005; 93010; 94002; 94003; 94640; 96361; 96365; 96375; 96376; A4216; C1713; C1751; C1769; C9113; G0390; G8978-GP-CN; G8979-GP-CL; G8987-GO-CM; G8988-GO-CI; G8996-GN-CM; G8997-GN-CK; J0131; J0360; J0690; J1100; J1644; J1650; J1885; J2001; J2060; J2250; J2270; J2543; J2704; J3010; J3475; J3480; J7050; J7620; P9016

== ENCOUNTER 2017-12-05 12:32 | Outpatient (CLI) | payer OTHER ==
--- NOTE | 2017-12-05 14:23 | RAD ---
CHEST TWO VIEWS: History: Rib fractures. Chest pain. Comparison: 11-08-17 FINDINGS: Cardiac silhouette and pulmonary vasculature are unremarkable. Depressed rib fractures along the righ t lateral chest wall are again demonstrated. No pneumothorax. Healing right radicular fracture with i nternal fixation. No significant pleural effusions. Degenerative changes thoracic spine. IMPRESSION: Healing right rib and clavicular fractures. Depression of the fractures is greater than on the 8 portable chest radiograph. No new abnormalities are apparent. POS: [facility]
== END 2017-12-05 12:33 | disposition home or self-care (01) ==
LOC: RAD 12:32
PROVIDERS: ATTEND Physician Assistant
DX: S42.001D Fracture of unspecified part of right clavicle, subsequent encounter for fracture with routine healing (principal); S22.41XD Multiple fractures of ribs, right side, subsequent encounter for fracture with routine healing
CPT/HCPCS: 71046

== ENCOUNTER 2017-12-19 10:21 | Outpatient (CLI) | payer SELFPAY ==
--- NOTE | 2017-12-19 11:51 | CT ---
CT BRAIN: Date: 12-19-17 Comparison: 11-02-17 History: Subarachnoid hemorrhage. FINDINGS: Noncontrast enhanced CT imaging of the brain demonstrate the brain to be unremarkable. No evidence of intracranial masses, hemorrhages, strokes or contusions seen. A small amount of subarachnoid hemorrh age noted in the left frontoparietal area is no longer visible. This area appears to have resolved. N o newly developed masses or lesions seen. IMPRESSION: Unremarkable CT brain with no evidence of acute intracranial pathology seen. Previously noted area of subarachnoid hemorrhage has resolved. POS: [facility]
== END 2017-12-19 10:22 | disposition home or self-care (01) ==
LOC: TBSIIMAG 10:21
PROVIDERS: ATTEND Neurological Surgery
DX: S06.6X0D Traumatic subarachnoid hemorrhage without loss of consciousness, subsequent encounter (principal)
CPT/HCPCS: 70450